=== PATIENT | female | born 1965 | race Caucasian/White ===

== ENCOUNTER 2020-02-28 09:40 | Outpatient (REF) | payer BC, SELFPAY ==
--- NOTE | 2020-02-28 09:43 | XR_ITS ---
EXAMINATION: KNEE X-RAY CLINICAL INFORMATION: Right knee pain COMPARISON: Previous exams most recent October 2019 TECHNIQUE: Standing AP view of both knees and standing lateral view of the right knee FINDINGS: There is a 3 component right knee replacement in satisfactory position. No fracture or dislocation is seen. There is a moderate to large joint effusion. Standing AP view of the left knee is unremarkable unremarkable. XR/XR knee standing BI IMPRESSION: Right knee replacement. Moderate to large joint effusion.
--- NOTE | 2020-02-28 09:43 | XR_ITS ---
EXAMINATION: KNEE X-RAY CLINICAL INFORMATION: Right knee pain COMPARISON: Previous exams most recent October 2019 TECHNIQUE: Standing AP view of both knees and standing lateral view of the right knee FINDINGS: There is a 3 component right knee replacement in satisfactory position. No fracture or dislocation is seen. There is a moderate to large joint effusion. Standing AP view of the left knee is unremarkable unremarkable. XR/XR knee RT 2V IMPRESSION: Right knee replacement. Moderate to large joint effusion.
== END 2020-02-28 09:41 | disposition home or self-care (01) ==
LOC: HO.HOSX 09:40
PROVIDERS: PCP Internal Medicine; Referring Provider Internal Medicine; Visit Provider Orthopaedic Surgery
DX: M25.561 Pain in right knee (principal); M25.562 Pain in left knee; Z96.651 Presence of right artificial knee joint
CPT/HCPCS: 73560; 73565

== ENCOUNTER 2020-11-16 07:55 | Outpatient (REF) | payer BC, SELFPAY ==
--- NOTE | ~2020-11-16 | XR_ITS ---
EXAMINATION: XR KNEE STANDING, BILATERAL XR KNEE, RIGHT CLINICAL INFORMATION: Right knee pain. COMPARISON: Right knee radiographs dated 02/28/2020 TECHNIQUE: AP standing view of the right and left knee as well as a lateral view of the right knee. FINDINGS: Total right knee arthroplasty. No acute hardware or osseous fracture. No perihardware lucency to suggest loosening or infection. Small joint effusion, unchanged. No abnormal soft tissue calcification. Mild medial compartment joint space narrowing within the left knee with tiny marginal osteophytes. XR/XR knee RT 2V IMPRESSION: 1. Total right knee arthroplasty without evidence of hardware complication. Small joint effusion, unchanged. 2. Mild medial compartment osteoarthritis within the left knee, unchanged.
--- NOTE | ~2020-11-16 | XR_ITS ---
EXAMINATION: XR KNEE STANDING, BILATERAL XR KNEE, RIGHT CLINICAL INFORMATION: Right knee pain. COMPARISON: Right knee radiographs dated 02/28/2020 TECHNIQUE: AP standing view of the right and left knee as well as a lateral view of the right knee. FINDINGS: Total right knee arthroplasty. No acute hardware or osseous fracture. No perihardware lucency to suggest loosening or infection. Small joint effusion, unchanged. No abnormal soft tissue calcification. Mild medial compartment joint space narrowing within the left knee with tiny marginal osteophytes. XR/XR knee standing BI IMPRESSION: 1. Total right knee arthroplasty without evidence of hardware complication. Small joint effusion, unchanged. 2. Mild medial compartment osteoarthritis within the left knee, unchanged.
== END 2020-11-16 07:56 | disposition home or self-care (01) ==
LOC: HO.HOSX 07:55
PROVIDERS: Visit Provider Orthopaedic Surgery
DX: M25.561 Pain in right knee (principal); M25.562 Pain in left knee; Z47.1 Aftercare following joint replacement surgery; Z96.651 Presence of right artificial knee joint
CPT/HCPCS: 73560; 73565

== ENCOUNTER 2021-03-14 12:01 | Outpatient (REF) | payer BC, SELFPAY ==
--- NOTE | ~2021-03-14 | XR_ITS ---
EXAMINATION: XR KNEE STANDING, BILATERAL XR KNEE, RIGHT CLINICAL INFORMATION: Knee pain. COMPARISON: 11/16/2020 TECHNIQUE: AP standing view of both knees with 3 additional views right knee. FINDINGS: Limited views of the left knee appear unremarkable aside from some mild unchanged narrowing of the medial compartment. A right total knee prosthesis is present in good position. Hardware appears intact. There has been no interval change when compared to the prior study. There is a persistent small right knee effusion. XR/XR knee RT 2V IMPRESSION: Right knee hardware intact with small right knee joint effusion. Unchanged minimal narrowing left medial compartment.
--- NOTE | ~2021-03-14 | XR_ITS ---
EXAMINATION: XR KNEE STANDING, BILATERAL XR KNEE, RIGHT CLINICAL INFORMATION: Knee pain. COMPARISON: 11/16/2020 TECHNIQUE: AP standing view of both knees with 3 additional views right knee. FINDINGS: Limited views of the left knee appear unremarkable aside from some mild unchanged narrowing of the medial compartment. A right total knee prosthesis is present in good position. Hardware appears intact. There has been no interval change when compared to the prior study. There is a persistent small right knee effusion. XR/XR knee standing BI IMPRESSION: Right knee hardware intact with small right knee joint effusion. Unchanged minimal narrowing left medial compartment.
== END 2021-03-14 12:02 | disposition home or self-care (01) ==
LOC: HO.HOSX 12:01
PROVIDERS: Visit Provider Orthopaedic Surgery
DX: M25.561 Pain in right knee (principal); Z96.651 Presence of right artificial knee joint
CPT/HCPCS: 73560; 73565

== ENCOUNTER → 2021-07-11 14:59 | Outpatient (BNVA) | payer BC, SELFPAY | PROVIDERS: Visit Provider Orthopaedic Surgery | DX: Z13.89 Encounter for screening for other disorder (principal) ==